=== PATIENT | male | born 1995 | race Caucasian/White ===

== ENCOUNTER 2019-06-22 18:01 | Emergency (ER) | payer OTHER ==
[~2019-06-22] VITALS: Ht 162.6 cm; Wt 61.2 kg
[2019-06-22] MEDS ORDERED: BUTALB-APAP-CA1 EACH PO (19:01)
[2019-06-22] MEDS ORDERED: ONDANSETRON HCL4 M2 PO (19:01)
[2019-06-22] MEDS ORDERED: IBUPROFEN 800800 M1 PO (19:01)
[2019-06-22 20:01] VITALS: BP 125/73
== END 2019-06-22 20:01 | disposition home or self-care (01) ==
LOC: M.ERS 18:01
DX: R51 Headache (principal)

== ENCOUNTER 2020-09-14 23:19 | Emergency (ER) | payer OTHER ==
[~2020-09-14] VITALS: Ht 162.6 cm; Wt 58.1 kg
[~2020-09-14 23:19] MED LIST: BUTALB-APAP-CA1 EACH PO; IBUPROFEN 800800 M1 PO; ONDANSETRON HCL4 M2 PO
[2020-09-14 23:52] LABS: URINE BILIRUBIN NEGATIVE (Negative); URINE BLOOD 2+ (Negative); URINE CLARITY CLEAR; URINE COLOR YELLOW; URINE GLUCOSE-RANDOM NEGATIVE (Negative); URINE KETONES NEGATIVE (Negative); URINE LEUKOCYTES-REFLEX NEGATIVE (Negative); URINE NITRITE-REFLEX NEGATIVE (Negative); URINE PROTEIN NEGATIVE (Negative); URINE UROBILINOGEN 0.2 E.U./dl (0.2-1.0)
[2020-09-15] LABS: BACTERIA-REFLEX None Seen /HPF (None Seen); CASTS None Seen /LPF (None Seen); CRYSTALS None Seen /LPF (None Seen); MUCUS None Seen strn/LPF (None Seen); SQUAMOUS NONE SEEN /LPF (0-3); URINE WBC-REFLEX 0-5 Rare /HPF (0-5)
[2020-09-15 00:54] VITALS: BP 125/74
== END 2020-09-15 00:55 | disposition home or self-care (01) ==
LOC: M.ERS 23:19
PROVIDERS: Personal Emergency Response Attendant
DX: L27.0 Generalized skin eruption due to drugs and medicaments taken internally (principal); Z88.1 Allergy status to other antibiotic agents; Z88.2 Allergy status to sulfonamides

== ENCOUNTER 2021-04-17 15:22 | Emergency (ER) | payer OTHER ==
[~2021-04-17] VITALS: Ht 162.6 cm; Wt 59.0 kg
[2021-04-17 15:28] VITALS: BP 117/79
[2021-04-17] MEDS ORDERED: NAPROSYN500 MG PO (17:18)
[2021-04-17] MEDS ORDERED: FLEXERIL PO (17:18)
== END 2021-04-17 17:38 | disposition home or self-care (01) ==
LOC: M.ERS 15:22
DX: S16.1XXA Strain of muscle, fascia and tendon at neck level, initial encounter (principal); M79.18 Myalgia, other site; Z88.1 Allergy status to other antibiotic agents; Z88.2 Allergy status to sulfonamides; W01.0XXA Fall on same level from slipping, tripping and stumbling without subsequent striking against object, initial encounter; Y93.89 Activity, other specified; Y92.89 Other specified places as the place of occurrence of the external cause; Y99.8 Other external cause status